=== PATIENT | female | born 1990 | race Caucasian/White ===

== ENCOUNTER 2018-02-04 04:21 | Outpatient (CLI) | payer OTHER ==
[~2018-02-04] VITALS: Ht 160 cm; Wt 65.9 kg
[~2018-02-04 04:21] MED LIST: MOTRIN 600600 MG/TAB PO; PERCOCET 325 MG1 TA2 PO; PRENATAL VITAMI1 TAB PO
[2018-02-04 05:30] VITALS: BP 111/66; PULSE 70; TEMP 97.8
== END 2018-02-04 05:45 | disposition home or self-care (01) ==
LOC: LDRO 04:21
DX: O62.9 Abnormality of forces of labor, unspecified (principal); Z3A.37 37 weeks gestation of pregnancy

== ENCOUNTER 2018-02-13 20:52 | Inpatient (IN) | payer OTHER ==
[2018-02-13] VITALS (12 sets, daily range): BP systolic 83–139; BP diastolic 45–98; PULSE 85–123; TEMP 98.1
[~2018-02-13] VITALS: Ht 162.6 cm; Wt 67.7 kg
[2018-02-13] MEDS ORDERED: NATURAL IRON65 MG PO (21:26)
[2018-02-13 21:50] LABS: BASO # 0.1 (0.0-0.2); BASO % 0.5 % (0.0-2.0); EOS # 0.1 (0.0-0.7); EOS % 0.6 % (0-4.0); GRAN # 8.1 (1.4-6.5); GRAN % 81.8 % (42.2-75.2); LYMPH % 9.5 % (20.0-51.0); MEAN CELL VOLUME 95 fl (80.0-100.0); MEAN CORPUSCULAR HEMOGLOBIN 32 pg (27.0-31.0); MEAN CORPUSCULAR HGB CONC 34 g/dl (33.0-37.0); MEAN PLATELET VOLUME 13.4 fl (7.4-10.4); MONO # 0.7 (0.1-0.6); MONO % 6.9 % (1.7-9.3); PLATELET COUNT 122 K/mm3 (130-400); RED BLOOD COUNT 3.77 M/mm3 (4.10-5.30); REDCELL DISTRIBUTION WIDTH-CV 14.4 % (11.5-14.5)
[2018-02-13 21:51] LABS: HEMATOCRIT 35.8 % (37.0-47.0)
[2018-02-14] VITALS (11 sets, daily range): BP systolic 95–133; BP diastolic 41–66; PULSE 83–120; TEMP 97.6–98.8
[2018-02-14] MEDS ORDERED: PERCOCET 325 MG1 TA2 PO (18:38)
[2018-02-14] MEDS ORDERED: MOTRIN 800800 MG/TAB PO (18:38)
[2018-02-15 06:45] VITALS: BP 98/62; PULSE 80; TEMP 97.7
== END 2018-02-15 12:50 | disposition home or self-care (01) | DRG 775 ==
LOC: LDRO 20:52 → OB 21:14 → LDR 21:14 → OB 02-14 05:10
PROVIDERS: Obstetrics & Gynecology
PROC: 10E0XZZ Delivery of Products of Conception, External Approach (ICD-10-PCS; principal; 2018-02-14)
DX: O99.12 Other diseases of the blood and blood-forming organs and certain disorders involving the immune mechanism complicating childbirth (principal); D69.6 Thrombocytopenia, unspecified; O99.02 Anemia complicating childbirth; D64.9 Anemia, unspecified; Z3A.39 39 weeks gestation of pregnancy; Z37.0 Single live birth
CPT/HCPCS: J2590; J2795; J7120

== ENCOUNTER 2019-09-29 07:07 | Inpatient (IN) | payer OTHER ==
[2019-09-29] VITALS (28 sets, daily range): BP systolic 91–125; BP diastolic 50–71; PULSE 59–98; TEMP 97.3–98.5
[~2019-09-29] VITALS: Ht 162.6 cm; Wt 64.5 kg
[~2019-09-29 07:07] MED LIST changes: +MOTRIN 800800 MG/TAB PO; +NATURAL IRON65 MG PO
--- NOTE | 2019-09-29 07:30 | NUR ---
Pt arrives on unit ambulatory with spouse of induction of labor. Changed into a clean gown. EFM and toco applied. VSS. Denies regular ctx, LOF and vaginal bleeding. Reports GFM. IV started in RF. Labs drawn. LR infusing. Admission assessment completed. Consents signed. Updated on POC. Safety reviewed. Bed locked in low position. Call light within reach. No questions or concerns at this time.
[2019-09-29 08:18] LABS: BASO # 0.1 (0.0-0.2); BASO % 0.6 % (0.0-2.0); EOS # 0.1 (0.0-0.7); EOS % 0.8 % (0-4.0); GRAN # 8.7 (1.4-6.5); GRAN % 77.2 % (42.2-75.2); HEMATOCRIT 34.6 % (37.0-47.0); HEMOGLOBIN 11.4 g/dl (12.5-16.0); LYMPH # 1.6 (1.2-3.4); LYMPH % 13.7 % (20.0-51.0); MEAN CELL VOLUME 98 fl (80.0-100.0); MEAN CORPUSCULAR HEMOGLOBIN 32 pg (27.0-31.0); MEAN CORPUSCULAR HGB CONC 33 g/dl (33.0-37.0); MEAN PLATELET VOLUME 12.8 fl (7.4-10.4); MONO # 0.8 (0.1-0.6); PLATELET COUNT 147 K/mm3 (130-400); RED BLOOD COUNT 3.54 M/mm3 (4.10-5.30); REDCELL DISTRIBUTION WIDTH-CV 12.9 % (11.5-14.5)
--- NOTE | 2019-09-29 09:54 | NUR ---
Pt sitting upright for epidural placement. Difficulty tracing FHR due to maternal position. RN at bedside adjusting monitors. FHR audible.
--- NOTE | 2019-09-29 12:10 | NUR ---
SVE per this RN -/-1. See physician notification 1220-SVE per this RN C/+2. Pt feels urge to bear down. Pitocin shut off. Dr. Fraser requested to unit for delivery. 1230-Dr. Fraser at bedside. Pt prepped for surgery 1234- of viable female infant attended by Dr. Fraser. Cord clamped x 2 and cut from umbilicus. dried and placed on mother's abdomen. Care of to Ben Wang RN. Apgars 9. 1240- of placenta. Fundus firm at umbilicus. Bleeding WNL. Superficial laceration repaired by physician with a 3-0 Chromic SH. Pericare peformed. Ice pack applied. Pt updated on POC. Safety reviewed. Bed locked in low position. Call light within reach. No questions or concerns at this time.
[2019-09-30 00:30] VITALS: BP 112/67; PULSE 80; TEMP 98.2
[2019-09-30 07:45] VITALS: BP 109/71; PULSE 80; TEMP 98.1
[2019-09-30] MEDS ORDERED: IBU600 MG PO (08:39)
--- NOTE | 2019-09-30 10:05 | NUR ---
Initial visit; Parents thanked Case Checker for offering congratulations and God's blessings for the of their daughter. Case Checker thanked family for choosing [facility].
[2019-09-30 11:52] VITALS: BP 110/69; PULSE 91; TEMP 98
--- NOTE | 2019-09-30 15:07 | NUR ---
PATIENT DISSCHARGE INSTRUCTIONS REVIEWED WITH HER AND . VERBALIZE UNDERSTANDING. MOTRIN SCRIPT REVIEWED. PATIENT AND FAMILY ESCORTED OUT TO PRIVATE VEHICLE.
== END 2019-09-30 15:10 | disposition home or self-care (01) | DRG 807 ==
LOC: LDR 07:07 → OB 07:07 → LDR 08:47 → OB 15:00
PROVIDERS: ADMIT Obstetrics & Gynecology
PROC: 10E0XZZ Delivery of Products of Conception, External Approach (ICD-10-PCS; principal; 2019-09-29)
PROC: 10907ZC Drainage of Amniotic Fluid, Therapeutic from Products of Conception, Via Natural or Artificial Opening (ICD-10-PCS; 2019-09-29)
PROC: 3E033VJ Introduction of Other Hormone into Peripheral Vein, Percutaneous Approach (ICD-10-PCS; 2019-09-29)
PROC: 0HQ9XZZ Repair Perineum Skin, External Approach (ICD-10-PCS; 2019-09-29)
DX: O99.02 Anemia complicating childbirth (principal); Z37.0 Single live birth; D64.9 Anemia, unspecified; O70.9 Perineal laceration during delivery, unspecified; O69.3XX0 Labor and delivery complicated by short cord, not applicable or unspecified; Z3A.39 39 weeks gestation of pregnancy
CPT/HCPCS: J2590; J7120